=== PATIENT | female | born 1940 | race Caucasian/White ===

== ENCOUNTER 2016-07-07 20:03 | Emergency (ER) | payer OTHER, BC ==
[~2016-07-07] VITALS: Ht 162.6 cm; Wt 71.8 kg
[~2016-07-07 20:03] MED LIST: AMLODIPINE-BEN1 EACH PO; COUMADIN3 MG PO; DESYREL100 MG PO; ENDOCET 5-3251 EACH PO; FERROUS SULFAT325 MG PO; FOSAMAX70 MG PO; HYDROCODON-ACE1 EAC7 PO; KLONOPIN0.5 M1 PO; LIPITOR20 MG PO; LISINOPRIL5 MG PO; LOTRISONE15 GM TP; LOVENOX40 MG/0.4 SC; PERCOCET 5/31 TABLET PO; PROTONIX40 MG PO; REMERON45 MG PO; SYNTHROID50 MCG PO; SYNTHROID75 MCG PO; TRAMADOL HCL50 MG PO; TYLENOL WITH C1 EACH PO; ULTRAM50 MG PO; VISTARIL25 MG PO; VITAMIN D31000 UNIT PO; WARFARIN SODIU2.5 MG PO; ZOFRAN4 MG PO; ZYPREXA10 MG PO
[2016-07-07 21:32] LABS: EOSINOPHIL (%) 1.9 % (0-5); EOSINOPHIL COUNT 0.1 K/uL (0-0.3); HEMATOCRIT 34.9 % (36.0-46.0); IMMATURE GRANULOCYTE (%) 0.2 % (0.0-0.7); INSTRUMENT ABS NEUTROPHIL CT 2.9 K/uL; LYMPHOCYTE COUNT 1.8 K/uL (1.0-2.8); MCH 28.6 PG (29.0-34.0); MCHC 31.5 G/DL (30.0-36.0); MCV 90.9 FL (83-99); MEAN PLAT.VOLUME 10.6 uM^3 (9.5-12.4); MONOCYTE (%) 6.9 % (3-12); MONOCYTE COUNT 0.4 K/uL (0-0.8); NEUTROPHIL (%) 55.5 % (45-76); NEUTROPHIL COUNT 2.9 K/uL (1.8-6.4); PLATELET COUNT 170 K/uL (156-360); RBC DIS.WIDTH-CV 14.6 % (11.8-14.6); RED BLOOD COUNT 3.84 M/uL (3.80-5.20); WHITE BLOOD COUNT 5.2 K/uL (4.1-10.2)
[2016-07-07 21:46] LABS: CHLORIDE 107 mEq/L (99-109); POTASSIUM 4.3 mEq/L (3.7-5.4); SODIUM 142 mEq/L (136-147)
[2016-07-07 21:48] LABS: GLUCOSE 97 mg/dL (70-99)
[2016-07-07 21:49] LABS: ANION GAP 9 MEQ/L (2-14)
[2016-07-07 21:52] LABS: GFR ESTIMATE (CALCULATED) 57 mL/min/
[2016-07-07 21:53] LABS: UREA NITROGEN (BUN) 23 mg/dL (9-23)
[2016-07-08 01:00] VITALS: BP 133/62
== END 2016-07-08 01:18 | disposition home or self-care (01) ==
LOC: EME → EDBD 20:03 → EME 20:03
PROVIDERS: Emergency Medicine
DX: S06.9X1A Unspecified intracranial injury with loss of consciousness of 30 minutes or less, initial encounter (principal); S00.03XA Contusion of scalp, initial encounter; M54.2 Cervicalgia; W01.0XXA Fall on same level from slipping, tripping and stumbling without subsequent striking against object, initial encounter; Y92.199 Unspecified place in other specified residential institution as the place of occurrence of the external cause; I10 Essential (primary) hypertension; E03.9 Hypothyroidism, unspecified; Z96.619 Presence of unspecified artificial shoulder joint
CPT/HCPCS: 70450; 72125; 80048; 85025; 93005; 99281; 99283

== ENCOUNTER 2016-08-06 18:33 | Emergency (ER) | payer OTHER, BC ==
[~2016-08-06] VITALS: Ht 162.6 cm; Wt 71.6 kg
[2016-08-06 22:15] VITALS: BP 141/74
== END 2016-08-06 22:16 | disposition home or self-care (01) ==
LOC: EME 18:33
PROC: 0HQ1XZZ Repair Face Skin, External Approach (ICD-10-PCS; principal; 2016-08-06)
DX: S09.90XA Unspecified injury of head, initial encounter (principal); S01.81XA Laceration without foreign body of other part of head, initial encounter; W01.0XXA Fall on same level from slipping, tripping and stumbling without subsequent striking against object, initial encounter; Y93.01 Activity, walking, marching and hiking; Y92.199 Unspecified place in other specified residential institution as the place of occurrence of the external cause; M79.7 Fibromyalgia; I10 Essential (primary) hypertension; K21.9 Gastro-esophageal reflux disease without esophagitis
CPT/HCPCS: 70450; 99281; 99284

== ENCOUNTER 2017-07-04 15:31 | Emergency (ER) | payer OTHER, BC ==
[~2017-07-04] VITALS: Ht 162.6 cm; Wt 69.8 kg
[2017-07-04 18:41] VITALS: BP 136/83
== END 2017-07-04 18:43 | disposition home or self-care (01) ==
LOC: EME 15:31
DX: S00.03XA Contusion of scalp, initial encounter (principal); M54.2 Cervicalgia; W19.XXXA Unspecified fall, initial encounter; Y92.129 Unspecified place in nursing home as the place of occurrence of the external cause; F03.90 Unspecified dementia, unspecified severity, without behavioral disturbance, psychotic disturbance, mood disturbance, and anxiety; G89.29 Other chronic pain; I10 Essential (primary) hypertension; Z88.5 Allergy status to narcotic agent; Z88.2 Allergy status to sulfonamides; Z88.0 Allergy status to penicillin
CPT/HCPCS: 70450; 72125; 99281; 99283

== ENCOUNTER 2017-07-09 08:23 | Inpatient (IN) | payer OTHER, BC ==
[~2017-07-09] VITALS: Ht 162.6 cm; Wt 66.5 kg
[2017-07-09 09:15] LABS: APPEARANCE SL.HAZY ((CLEAR)); BILIRUBIN NEGATIVE; BLOOD MODERATE; COLOR YELLOW ((YELLOW)); GLUCOSE (STRIP) NEGATIVE; KETONES NEGATIVE; LEUKOCYTES LARGE; NITRITE POSITIVE; PROTEIN (STRIP) NEGATIVE; UROBILINOGEN 0.2 MG/DL (0.2-1.0)
[2017-07-09 09:34] LABS: BACTERIA 1+ /HPF; EPITHELIAL CELLS 1+ /HPF; MUCUS NONE SEEN /LPF; RED BLOOD CELLS 15-20 /HPF (0-5); WHITE BLOOD CELLS TNTC /HPF (0-5)
[2017-07-09 09:36] LABS: HEMATOCRIT 38.9 % (36.0-46.0); HEMOGLOBIN 12.9 G/DL (11.9-15.5); MCH 32.2 PG (29.0-34.0); MCHC 33.2 G/DL (30.0-36.0); PLATELET COUNT 201 K/uL (156-360); RBC DIS.WIDTH-CV 13.2 % (11.8-14.6); RBC DIS.WIDTH-SD 47.5 % (39-53); RED BLOOD COUNT 4.01 M/uL (3.80-5.20)
[2017-07-09 09:44] LABS: CHLORIDE 109 mEq/L (99-109); POTASSIUM 4.4 mEq/L (3.7-5.4); SODIUM 146 mEq/L (136-147)
[2017-07-09 09:46] LABS: GLUCOSE 92 mg/dL (70-99)
[2017-07-09 09:50] LABS: GFR ESTIMATE (CALCULATED) 57 mL/min/
[2017-07-09 09:51] LABS: UREA NITROGEN (BUN) 20 mg/dL (9-23)
[2017-07-09 09:57] LABS: TROP-I INTERPRETATION NEGATIVE; TROPONIN-I < 0.01 ng/mL (0.0-0.30)
[2017-07-09] MEDS ORDERED: COLACE100 MG PO (11:49)
[2017-07-09] MEDS ORDERED: ARICEPT5 MG PO (11:50)
[2017-07-09] MEDS ORDERED: ZYPREXA10 MG PO (11:51)
[2017-07-09] MEDS ORDERED: VITAMIN D31000 UNI2 PO (11:52)
[2017-07-09] MEDS ORDERED: DESYREL 150 MG150 MG PO (11:52)
[2017-07-09] MEDS ORDERED: TYLENOL ARTHRI650 MG PO (11:53)
[2017-07-09] MEDS ORDERED: ZESTRIL20 MG PO (11:54)
[2017-07-09] MEDS ORDERED: KLONOPIN0.5 M1 PO (11:55)
[2017-07-09] MEDS ORDERED: DULCOLAX10 MG PR (11:56)
[2017-07-09] MEDS ORDERED: PROMETHAZINE12.5 M1 PO (11:57)
[2017-07-09 19:59] VITALS: BP 172/69
[2017-07-10 00:03] VITALS: BP 150/71
[2017-07-10 03:51] VITALS: BP 131/74
[2017-07-10 08:18] VITALS: BP 165/85
[2017-07-10 11:56] VITALS: BP 161/74
[2017-07-10 16:04] VITALS: BP 147/72
[2017-07-10 19:14] VITALS: BP 191/94
[2017-07-11 00:06] VITALS: BP 172/85
[2017-07-11 08:00] VITALS: BP 158/74
[2017-07-11 19:56] VITALS: BP 140/74
[2017-07-11 23:35] VITALS: BP 141/80
[2017-07-12 08:02] VITALS: BP 136/80
[2017-07-12 12:02] VITALS: BP 160/81
[2017-07-12 16:23] VITALS: BP 150/78
[2017-07-12 23:26] VITALS: BP 136/74
[2017-07-13 03:49] VITALS: BP 165/80
[2017-07-13 07:52] VITALS: BP 140/73
[2017-07-13 15:43] VITALS: BP 126/73
[2017-07-13 23:16] VITALS: BP 128/70
[2017-07-14 07:57] VITALS: BP 131/63
[2017-07-14 15:49] VITALS: BP 112/70
[2017-07-14] MEDS ORDERED: LOPRESSOR25 MG PO (16:38)
== END 2017-07-14 18:07 | disposition home health service (06) | DRG 543 ==
LOC: EME → EDBD 08:23 → EME 08:23 → EDOF 12:51 → 3EAST 12:51 → ENRESERV 12:52 → 3EAST 19:44
PROVIDERS: Nurse Practitioner Family
DX: M80.88XA Other osteoporosis with current pathological fracture, vertebra(e), initial encounter for fracture (principal); N30.00 Acute cystitis without hematuria; F05 Delirium due to known physiological condition; G30.9 Alzheimer's disease, unspecified; B96.1 Klebsiella pneumoniae [K. pneumoniae] as the cause of diseases classified elsewhere; B96.20 Unspecified Escherichia coli [E. coli] as the cause of diseases classified elsewhere; F02.80 Dementia in other diseases classified elsewhere, unspecified severity, without behavioral disturbance, psychotic disturbance, mood disturbance, and anxiety; E03.9 Hypothyroidism, unspecified; K21.9 Gastro-esophageal reflux disease without esophagitis; I10 Essential (primary) hypertension; F41.9 Anxiety disorder, unspecified; Z90.710 Acquired absence of both cervix and uterus; Z90.01 Acquired absence of eye; Z88.0 Allergy status to penicillin; Z96.651 Presence of right artificial knee joint; Z96.611 Presence of right artificial shoulder joint; Z88.2 Allergy status to sulfonamides; Z88.1 Allergy status to other antibiotic agents; Z88.5 Allergy status to narcotic agent; Z86.718 Personal history of other venous thrombosis and embolism; Z82.49 Family history of ischemic heart disease and other diseases of the circulatory system
CPT/HCPCS: 70450; 71046; 72040; 72070; 80048; 81003; 83605; 84484; 85027; 87040; 87077; 87086; 87186; 93005; 99202; 99281; 99285; J1650; J1885; J1956; J2543; J7030

== ENCOUNTER 2017-10-04 14:50 | Inpatient (IN) | payer OTHER, BC ==
[~2017-10-04] VITALS: Ht 162.6 cm; Wt 63.6 kg
[~2017-10-04 14:50] MED LIST changes: +ARICEPT5 MG PO; +COLACE100 MG PO; +DESYREL 150 MG150 MG PO; +DULCOLAX10 MG PR; +LOPRESSOR25 MG PO; +PROMETHAZINE12.5 M1 PO; +TYLENOL ARTHRI650 MG PO; +VITAMIN D31000 UNI2 PO; +ZESTRIL20 MG PO
[2017-10-04 16:08] LABS: APPEARANCE CLEAR ((CLEAR)); BILIRUBIN NEGATIVE; BLOOD SMALL; COLOR YELLOW ((YELLOW)); GLUCOSE (STRIP) NEGATIVE; KETONES NEGATIVE; LEUKOCYTES MODERATE; NITRITE POSITIVE; PROTEIN (STRIP) NEGATIVE; UROBILINOGEN 0.2 MG/DL (0.2-1.0)
[2017-10-04 16:12] LABS: BACTERIA 1+ /HPF; EPITHELIAL CELLS RARE /HPF; HYALINE CASTS 0-5 /LPF; MUCUS TRACE /LPF; RED BLOOD CELLS 0-5 /HPF (0-5); UCUL ADDED? YES; WHITE BLOOD CELLS 40-50 /HPF (0-5)
[2017-10-04 16:20] LABS: HEMATOCRIT 38.7 % (36.0-46.0); HEMOGLOBIN 12.5 G/DL (11.9-15.5); MCH 30.9 PG (29.0-34.0); MCHC 32.3 G/DL (30.0-36.0); MCV 95.6 FL (83-99); PLATELET COUNT 182 K/uL (156-360); RBC DIS.WIDTH-CV 13.7 % (11.8-14.6); RBC DIS.WIDTH-SD 48.1 % (39-53); RED BLOOD COUNT 4.05 M/uL (3.80-5.20)
[2017-10-04 16:35] LABS: CHLORIDE 108 mEq/L (99-109); POTASSIUM 4.5 mEq/L (3.7-5.4); SODIUM 143 mEq/L (136-147)
[2017-10-04 16:37] LABS: GLUCOSE 97 mg/dL (70-99)
[2017-10-04 16:37] LABS: AMPHETAMINE NEGATIVE (500 ng/mL); BARBITURATES NEGATIVE (200 ng/mL); BENZODIAZEPINES NEGATIVE (150 ng/mL); BUPRENORPHINE NEGATIVE (10 ng/mL); COCAINE NEGATIVE (150 ng/mL); METHADONE NEGATIVE (200 ng/mL); METHAMPHETAMINE NEGATIVE (500 ng/mL); OPIATES (MORPHINE) NEGATIVE (100 ng/mL); OXYCODONE NEGATIVE (100 ng/mL); PHENCYCLIDINE NEGATIVE (25 ng/mL); PROPOXYPHENE NEGATIVE (300 ng/mL); THC CANNABINOIDS NEGATIVE (50 ng/mL); TRICYCLIC ANTIDEPRESSANTS NEGATIVE (300 ng/mL)
[2017-10-04 16:40] LABS: GFR ESTIMATE (CALCULATED) 57 mL/min/
[2017-10-04 16:41] LABS: UREA NITROGEN (BUN) 14 mg/dL (9-23)
[2017-10-04] MEDS ORDERED: LEVO-T50 MCG PO (19:20)
[2017-10-04] MEDS ORDERED: DESYREL100 MG PO (19:21)
[2017-10-04] MEDS ORDERED: MACRODANTIN100 MG PO (19:22)
[2017-10-04] MEDS ORDERED: ULTRAM50 MG PO (19:22)
[2017-10-04] MEDS ORDERED: PROBIOTIC250 MG PO (19:23)
[2017-10-04] MEDS ORDERED: KLONOPIN1 MG PO (19:24)
[2017-10-04 19:50] VITALS: BP 139/85
[2017-10-05 08:09] VITALS: BP 165/74
[2017-10-05 16:18] VITALS: BP 128/59
[2017-10-06 07:51] VITALS: BP 148/88
[2017-10-06 16:16] VITALS: BP 138/67
[2017-10-06 19:23] VITALS: BP 150/67
[2017-10-07 07:55] VITALS: BP 156/72
[2017-10-07 17:35] VITALS: BP 124/57
[2017-10-07 21:23] VITALS: BP 130/75
[2017-10-08 07:29] VITALS: BP 173/78
[2017-10-08 13:09] LABS: BASOPHIL (%) 0.8 % (0-1); BASOPHIL COUNT 0.1 K/uL (0-0.1); EOSINOPHIL (%) 1.7 % (0-5); EOSINOPHIL COUNT 0.1 K/uL (0-0.3); HEMATOCRIT 44.9 % (36.0-46.0); IMMATURE GRANULOCYTE (%) 0.4 % (0.0-0.7); LYMPHOCYTE (%) 31.7 % (15-42); LYMPHOCYTE COUNT 2.7 K/uL (1.0-2.8); MCH 31.6 PG (29.0-34.0); MCHC 32.5 G/DL (30.0-36.0); MCV 97.2 FL (83-99); MONOCYTE (%) 6.4 % (3-12); MONOCYTE COUNT 0.5 K/uL (0-0.8); PLATELET COUNT 213 K/uL (156-360); RBC DIS.WIDTH-CV 14.1 % (11.8-14.6); RBC DIS.WIDTH-SD 50.8 % (39-53); RED BLOOD COUNT 4.62 M/uL (3.80-5.20); WHITE BLOOD COUNT 8.5 K/uL (4.1-10.2)
[2017-10-08 13:14] LABS: HEMOGLOBIN 14.6 G/DL (11.9-15.5)
[2017-10-08 15:02] LABS: CHLORIDE 107 mEq/L (99-109); POTASSIUM 4.8 mEq/L (3.7-5.4); SODIUM 142 mEq/L (136-147)
[2017-10-08 15:04] LABS: GLUCOSE 118 mg/dL (70-99)
[2017-10-08 15:08] LABS: CREATININE 1.1 mg/dL (0.6-1.3); GFR ESTIMATE (CALCULATED) 51 mL/min/
[2017-10-08 15:09] LABS: UREA NITROGEN (BUN) 24 mg/dL (9-23)
[2017-10-08 15:22] VITALS: BP 162/69
[2017-10-09 07:34] VITALS: BP 145/82
[2017-10-09] MEDS ORDERED: DONEPEZIL HCL10 MG PO (08:53)
[2017-10-09] MEDS ORDERED: CIPROFLOXACIN500 M1 PO (08:53)
[2017-10-09] MEDS ORDERED: COLACE100 MG PO (08:53)
[2017-10-09] MEDS ORDERED: ULTRAM50 MG PO (09:02)
== END 2017-10-09 14:57 | disposition home health service (06) | DRG 57 ==
LOC: EME 14:50 → 1WEST 16:20 → EDOF 16:20 → ENRESERV 19:39 → 1WEST 19:40
PROVIDERS: Emergency Medicine; Psychiatry & Neurology Psychiatry
DX: G30.9 Alzheimer's disease, unspecified (principal); F43.21 Adjustment disorder with depressed mood; I12.9 Hypertensive chronic kidney disease with stage 1 through stage 4 chronic kidney disease, or unspecified chronic kidney disease; F01.50 Vascular dementia, unspecified severity, without behavioral disturbance, psychotic disturbance, mood disturbance, and anxiety; N39.0 Urinary tract infection, site not specified; R45.851 Suicidal ideations; F02.80 Dementia in other diseases classified elsewhere, unspecified severity, without behavioral disturbance, psychotic disturbance, mood disturbance, and anxiety; N18.9 Chronic kidney disease, unspecified; M79.7 Fibromyalgia
CPT/HCPCS: 80048; 81003; 83630; 85025; 85027; 87077; 87086; 87186; 87493; 90839; 97165 GO; 99281; 99285